=== PATIENT | female | born 1980 | race Caucasian/White ===

== ENCOUNTER 2017-10-27 16:19 | Emergency (ER) | payer OTHER ==
--- NOTE | 2017-10-27 17:25 | PDOC ---
Rapid Medical Evaluation Chief Complaint: Vaginal Bleeding Time Seen by Provider: 10/27/17 17:21 Medical Evaluation: Allergies Allergy/AdvReac Type Severity Reaction Status Date / Time No Known Allergies Allergy Verified 10/27/17 17:21 10/27/17 17:22 pt c/o: vag spotting increased since tuesday, went to [facility] and was told she was 5 weeks 2 days on u/s. Gave rhogam. ua -. Pt on brief exam: vss, no abd tenderness Pt ordered for : beta hcg, cbc, comp, preg u/s pt to proceed to the ED: Discharge Disposition - Diagnosis Vaginal bleeding during - Referrals - Patient Instructions - Post Discharge Activity
[2017-10-27 17:26] VITALS: BP 150/91; PULSE 82; TEMP 97.8; BMI 36.3
[2017-10-27 17:52] LABS: BASO % 0.7 % (0-2.0); EOS % 1.6 % (0-4.5); HEMATOCRIT 39.5 % (32.4-45.2); HEMOGLOBIN 13.2 GM/dL (10.7-15.3); LYMPH % 28.2 % (8-40); MCH 29.9 pg (25.7-33.7); MCHC 33.4 g/dl (32.0-36.0); MEAN CELL VOLUME 89.5 fl (80-96); MEAN PLT VOLUME 9.5 fl (7.5-11.1); NEUT % 62.5 % (42.8-82.8); PLATELET COUNT 228 K/MM3 (134-434); RBC 4.41 M/mm3 (3.60-5.2); RDW 12.5 % (11.6-15.6); WHITE BLOOD COUNT 7.9 K/mm3 (4.0-10.0)
[2017-10-27] MEDS ORDERED: ACETAMINOPHEN 325 MG TABLET (FP) PO ONE (17:53)
--- NOTE | 2017-10-27 17:53 | PDOC ---
History of Present Illness - General Chief Complaint: Vaginal Bleeding Stated Complaint: VAGINAL BLEEDING/6 WKS Time Seen by Provider: 10/27/17 17:21 History Source: Patient Exam Limitations: No Limitations - History of Present Illness Travel History: No Initial Comments: 10/27/17 17:58 36 yr female states 5 weeks with lower abd cramping low back pain and vaginal bleeding. Pt seen at [facility] ER 10/25/17 for same. Was given Rhogam shot and told to return in 2 days,. Pt has no medical history. Pain Radiation: reports: no radiation Past History - Past Medical History Allergies/Adverse Reactions: Allergies Allergy/AdvReac Type Severity Reaction Status Date / Time No Known Allergies Allergy Verified 10/27/17 17:21 Home Medications: Ambulatory Orders Ibuprofen 800 mg PO TID PRN #20 tablet 10/27/17 Oxycodone HCl/Acetaminophen [Percocet 5-325 mg Tablet] 1 tab PO Q4H PRN #12 tablet MDD 8 tabs 10/27/17 CVA: No COPD: No DVT: No - Immunization History Immunization Up to Date: Yes - Suicide/Smoking/Psychosocial Hx Smoking History: Never smoked Have you smoked in the past 12 months: No Information on smoking cessation initiated: No Hx Alcohol Use: No Drug/Substance Use Hx: No Substance Use Type: None *Physical Exam - Vital Signs Last Vital Signs Temp Pulse Resp BP Pulse Ox 97.8 F 82 16 150/91 100 10/27/17 17:21 10/27/17 17:21 18 17:21 10/27/17 17:21 10/27/17 17:21 - Physical Exam General Appearance: Yes: Nourished, Appropriately Dressed HEENT: positive: EOMI, SAWYER Neck: positive: Supple. negative: Tender Respiratory/Chest: positive: Lungs Clear, Normal Breath Sounds. negative: Chest Tender Cardiovascular: positive: Regular Rhythm, Regular Rate Female Pelvic Exam: positive: vaginal bleeding (bright red blood with clots.) Gastrointestinal/Abdominal: positive: Normal Bowel Sounds, Soft Musculoskeletal: positive: Normal Inspection Extremity: positive: Normal Capillary Refill, Normal Inspection, Normal Range of Motion Integumentary: positive: Normal Color, Dry, Warm Neurologic: positive: Fully Oriented, Alert, Normal Mood/Affect, Normal Response , Motor Strength 5/5 ED Treatment Course - LABORATORY CBC & Chemistry Diagram: 10/27/17 17:44 10/27/17 17:44 Medical Decision Making - Medical Decision Making 10/27/17 19:08 cc: vaginal bleeding with cramping 5 weeks had Rhogam shot at [facility] 2 days ago pt came to ER today for increased bleeding and pain 10/27/17 20:06 signed out to John Sapp NP pending the US results. *DC/Admit/Observation/Transfer Diagnosis at time of Disposition: Vaginal bleeding during - Discharge Dispostion Condition at time of disposition: Fair - Prescriptions Prescriptions: Ibuprofen 800 mg PO TID PRN #20 tablet PRN Reason: Pain Oxycodone HCl/Acetaminophen [Percocet 5-325 mg Tablet] 1 tab PO Q4H PRN #12 tablet MDD 8 tabs PRN Reason: Severe Pain - Referrals - Patient Instructions Additional Instructions: please follow up with the audio visual design engineer Dr. Davis call tomorrow to make appointment take motrin 800mg every 8hrs for pain apply a warm heating pad to the lower abdomen and back take percocet for severe pain return to ER for any pain you can not control at home or any other concerns please drink pleanty of water 2 liters daily and eat small well balanced meals every 2-3 hrs por favor, siga con el gineclogo Dr. Davis llame maana para hacer joy chandrika jeffery motrin 800 mg cada 8 horas para el dolor aplicar joy almohadilla trmica caliente en la parte inferior del abdomen y la espalda jeffery percocet para el dolor jo-ann regresar a la enedina de emergencias por cualquier dolor que no pueda controlar en el hogar o cualquier otra inquietud por favor leslie samanta agua 2 litros al da y coma comidas pequeas y deangelo balanceadas cada 2-3 horas - Post Discharge Activity
[2017-10-27] MEDS ORDERED: ACETAMINOPHEN 325 MG TABLET (FP) ONE (17:54)
[2017-10-27 18:39] LABS: ALBUMIN 4.1 g/dl (3.4-5.0); ANION GAP 7 (8-16); BLOOD UREA NITROGEN 12 mg/dL (7-18); CALCIUM 8.8 mg/dL (8.5-10.1); CHLORIDE 105 mmol/L (98-107); CO2 27 mmol/L (21-32); CREATININE 0.6 mg/dL (0.55-1.02); GLUCOSE,RANDOM 102 mg/dL (74-106); POTASSIUM 3.9 mmol/L (3.5-5.1); SGOT/AST 30 U/L (15-37); SODIUM 139 mmol/L (136-145); TOT PROT 7.7 g/dl (6.4-8.2)
[2017-10-27 18:54] LABS: ALK PHOS 83 U/L (45-117); BILIRUBIN,TOTAL 0.3 mg/dL (0.2-1.0); SGPT/ALT 52 U/L (12-78)
--- NOTE | 2017-10-27 20:21 | PDOC ---
*Physical Exam - Vital Signs Last Vital Signs Temp Pulse Resp BP Pulse Ox 97.8 F 82 16 150/91 100 10/27/17 17:21 10/27/17 17:21 10/27/17 17:21 10/27/17 17:21 10/27/17 17:21 ED Treatment Course - LABORATORY CBC & Chemistry Diagram: 10/27/17 17:44 10/27/17 17:44 - ADDITIONAL ORDERS Additional order review: Laboratory Results 10/27/17 10/27/17 17:44 17:44 Sodium 139 Potassium 3.9 Chloride 105 Carbon Dioxide 27 Anion Gap 7 L BUN 12 Creatinine 0.6 Creat Clearance w eGFR > 60 Random Glucose 102 Calcium 8.8 Total Bilirubin 0.3 AST 30 ALT 52 Alkaline Phosphatase 83 Total Protein 7.7 Albumin 4.1 Beta HCG, Quant 7815.5 Blood Type O NEGATIVE Antibody Screen Positive H 10/27/17 17:44 RBC 4.41 MCV 89.5 MCHC 33.4 RDW 12.5 MPV 9.5 Neutrophils % 62.5 Lymphocytes % 28.2 Monocytes % 7.0 Eosinophils % 1.6 Basophils % 0.7 - Medications Given in the ED: ED Medications Discontinued Medications Generic Name Dose Route Start Last Admin Trade Name Freq PRN Reason Stop Dose Admin Acetaminophen 650 mg 10/27/17 17:53 10/27/17 17:55 Tylenol - PO 10/27/17 17:54 650 mg ONCE ONE Administration Progress Note - Progress Note Progress Note: Obstetrical ultrasound read by Dr. Mancini: Intrauterine gestational sac is noted with a 1.8 cm diameter. No associated embryonic pole or yolk sac is seen and therefore the study suggestive doesn't an embryonic gestation. Correlation with beta hCG levels. Pulse follow-up sonography may be performed. *DC/Admit/Observation/Transfer Diagnosis at time of Disposition: Vaginal bleeding during - Discharge Dispostion Disposition: HOME Condition at time of disposition: Fair - Prescriptions Prescriptions: Ibuprofen 800 mg PO TID PRN #20 tablet PRN Reason: Pain Oxycodone HCl/Acetaminophen [Percocet 5-325 mg Tablet] 1 tab PO Q4H PRN #12 tablet MDD 8 tabs PRN Reason: Severe Pain - Referrals - Patient Instructions Additional Instructions: please follow up with the depilatory painter Dr. Davis call tomorrow to make appointment take motrin 800mg every 8hrs for pain apply a warm heating pad to the lower abdomen and back take percocet for severe pain return to ER for any pain you can not control at home or any other concerns please drink pleanty of water 2 liters daily and eat small well balanced meals every 2-3 hrs por favor, siga con el gineclogo Dr. Davis llame maana para hacer joy chandrika jeffery motrin 800 mg cada 8 horas para el dolor aplicar joy almohadilla trmica caliente en la parte inferior del abdomen y la espalda jeffery percocet para el dolor jo-ann regresar a la enedina de emergencias por cualquier dolor que no pueda controlar en el hogar o cualquier otra inquietud por favor leslie samanta agua 2 litros al da y coma comidas pequeas y deangelo balanceadas cada 2-3 horas - Post Discharge Activity
== END 2017-10-27 20:23 | disposition home or self-care (01) ==
LOC: JERFT 16:19
DX: O26.891 Other specified pregnancy related conditions, first trimester (principal); O20.8 Other hemorrhage in early pregnancy; Z3A.01 Less than 8 weeks gestation of pregnancy
CPT/HCPCS: 36415; 76801-TC; 80053; 84702; 85025; 86850; 86870; 86900; 86901; 86902; 99281-25

== ENCOUNTER 2021-01-06 16:30 | Inpatient (IN) | payer OTHER ==
[2021-01-06 18:10] VITALS: BMI 33.6
[2021-01-06] MEDS: DEXTROSE 5%-LACTATED RINGERS 1,000 ML IV SCH (18:20)
[2021-01-06] MEDS ORDERED: BUTORPHANOL TARTRATE 1 MG/ML VIAL IVPB ONE (18:25)
[2021-01-06] MEDS ORDERED: PROMETHAZINE HCL 25 MG/1 ML VIAL IVPUSH ONE (18:25)
[2021-01-06 18:57] LABS: BASO % 0.3 % (0-2.0); EOS % 0.2 % (0-4.5); HEMATOCRIT 31.4 % (32.4-45.2); HEMOGLOBIN 10.3 GM/dL (10.7-15.3); LYMPH % 16.6 % (8-40); MCH 28.4 pg (25.7-33.7); MCHC 32.9 g/dl (32.0-36.0); MEAN CELL VOLUME 86.2 fl (80-96); MEAN PLT VOLUME 9.8 fl (7.5-11.1); MONO % 5.7 % (3.8-10.2); NEUT % 77.2 % (42.8-82.8); PLATELET COUNT 260 K/MM3 (134-434); RBC 3.64 M/mm3 (3.60-5.2); RDW 13.4 % (11.6-15.6); WHITE BLOOD COUNT 9.4 K/mm3 (4.0-10.0)
[2021-01-06 19:06] LABS: INR 0.93 (0.83-1.09); PROTHROMBIN TIME (PATIENT) 11.3 SEC (9.7-13.0)
[2021-01-06 19:09] LABS: ACTIVATED PTT 24.7 SECONDS (25.2-36.5)
[2021-01-06 19:24] LABS: CALCIUM 8.9 mg/dL (8.5-10.1)
[2021-01-06 19:25] LABS: BLOOD UREA NITROGEN 9.2 mg/dL (7-18)
[2021-01-06 19:27] LABS: CREATININE 0.5 mg/dL (0.55-1.3); URIC ACID 3.5 mg/dL (2.6-7.2)
[2021-01-06 19:29] LABS: BILIRUBIN,TOTAL 0.6 mg/dL (0.2-1)
[2021-01-06] MEDS ORDERED: OXYTOCIN 30 UNITS in 0.9% NS 30 UNIT/500 ML INFUS.BAG IVPB ONE (20:27)
[2021-01-06] MEDS ORDERED: OXYTOCIN 30 UNITS in 0.9% NS 30 UNIT/500 ML INFUS.BAG IVPB SCH (20:30)
[2021-01-07] MEDS ORDERED: PROMETHAZINE HCL 25 MG/1 ML VIAL ONE (00:01)
[2021-01-07] MEDS ORDERED: BUTORPHANOL TARTRATE 2 MG/ML VIAL ONE (00:01)
[2021-01-07] MEDS: DEXTROSE 5%-LACTATED RINGERS 1,000 ML IV SCH (00:38)
[2021-01-07 01:41] LABS: EPI CELLS >36 /uL (0-25.1); HYALINE CASTS 7 /uL (0-3.1); URINE APPEARANCE CLOUDY; URINE BACTERIA 238 /uL (0-1359); URINE BILIRUBIN NEGATIVE (NEGATIVE); URINE COLOR YELLOW; URINE GLUCOSE (UA) NEGATIVE (NEGATIVE); URINE KETONE 1+ (NEGATIVE); URINE LEUK ESTERASE TRACE (NEGATIVE); URINE NITRITE NEGATIVE (NEGATIVE); URINE PROTEIN 1+ (NEGATIVE); URINE RBC 159 /uL (0-23.9); URINE WBC 25 /uL (0-25.8)
[2021-01-07] MEDS ORDERED: FENTANYL/BUPIVACAINE/NS/PF - PCEA - 50 ML DISP.SYRIN EP ONE (02:00)
[2021-01-07] MEDS ORDERED: NALOXONE HCL 0.4 MG/ML VIAL IVPUSH PRN (02:01)
[2021-01-07] MEDS ORDERED: PCA PUMP NR ONE (02:01)
[2021-01-07] MEDS ORDERED: BUPIVACAINE HCL/PF 0.25% (2.5MG/ML) 10 ML VIAL ONE (02:05)
[2021-01-07] MEDS: FENTANYL/BUPIVACAINE/NS/PF - PCEA - 50 ML DISP.SYRIN EP SCH (02:30)
[2021-01-07] MEDS ORDERED: OXYTOCIN 20 UNITS in 0.9% NS 20 UNIT/1,000 ML INFUS.BAG IV ONE (04:03)
[2021-01-07] MEDS ORDERED: LIDOCAINE HCL 1% PRESERVATIVE FREE - 30ML VIAL ONE (04:04)
[2021-01-07] MEDS ORDERED: WITCH HAZEL 50% (TUCKS) 40 PAD/JAR PAD TP PRN (06:04)
[2021-01-07] MEDS ORDERED: BENZOCAINE 28 GM HEMORRHOIDAL OINTMENT TP PRN (06:04)
[2021-01-07] MEDS ORDERED: oxyCODONE HCL 5 MG TABLET PO PRN (06:04)
[2021-01-07] MEDS ORDERED: BISACODYL 10 MG SUPP.RECT RC PRN (06:04)
[2021-01-07] MEDS ORDERED: BENZOCAINE 20% 57 GM BOTTLE TP PRN (06:04)
[2021-01-07] MEDS ORDERED: METHYLERGONOVINE MALEATE 0.2 MG/1 ML AMP IM PRN (06:04)
[2021-01-07] MEDS ORDERED: LABETALOL HCL 200 MG TABLET (FP) PO ONE (06:08)
[2021-01-07] MEDS ORDERED: OXYTOCIN 20 UNITS in 0.9% NS 20 UNIT/1,000 ML INFUS.BAG IV SCH (06:15)
[2021-01-07 06:16] LABS: CORD BASE EXCESS -3.5 mmol/L (0-2); CORD HCO3 26.2 mmHg (20-29); CORD PCO2 65.4 mmHg (30-78); CORD pH 7.22 (7.14-7.44)
[2021-01-07 06:17] LABS: CORD BASE EXCESS -5.4 mmol/L (0-2); CORD HCO3 19.6 mmHg (20-29); CORD PCO2 37.2 mmHg (30-78); CORD pH 7.34 (7.14-7.44)
[2021-01-07] MEDS ORDERED: ACETAMINOPHEN 325 MG TABLET (FP) ONE (08:02)
[2021-01-07] MEDS ORDERED: IBUPROFEN 600 MG TABLET (FP) PO ONE (08:02)
[2021-01-07] MEDS: IBUPROFEN 600 MG TABLET (FP) PO PRN (08:05)
[2021-01-07] MEDS: ACETAMINOPHEN 325 MG TABLET (FP) PO PRN (08:05)
[2021-01-07] MEDS ORDERED: FERROUS SO4 325 MG TABLET (FP) ONE (08:12)
[2021-01-07] MEDS: FERROUS SO4 325 MG TABLET (FP) PO SCH ×2 (08:15→17:43)
[2021-01-07] MEDS: PRENATAL VITAMINS W/ FOLIC ACID TABLET (FP) PO SCH (09:10)
[2021-01-07] MEDS: LABETALOL HCL 200 MG TABLET (FP) PO PRN ×2 (17:43→23:22)
[2021-01-08] MEDS: LABETALOL HCL 200 MG TABLET (FP) PO PRN ×2 (05:47→18:18)
[2021-01-08 07:59] LABS: BASO % 0.2 % (0-2.0); HEMATOCRIT 26.3 % (32.4-45.2); HEMOGLOBIN 8.5 GM/dL (10.7-15.3); LYMPH % 16.1 % (8-40); MCH 28.2 pg (25.7-33.7); MCHC 32.3 g/dl (32.0-36.0); MEAN CELL VOLUME 87.3 fl (80-96); MEAN PLT VOLUME 9.5 fl (7.5-11.1); MONO % 5.1 % (3.8-10.2); NEUT % 77.6 % (42.8-82.8); PLATELET COUNT 205 K/MM3 (134-434); RBC 3.02 M/mm3 (3.60-5.2); RDW 14.1 % (11.6-15.6); WHITE BLOOD COUNT 11.5 K/mm3 (4.0-10.0)
[2021-01-08] MEDS: FERROUS SO4 325 MG TABLET (FP) PO SCH ×2 (09:00→17:29)
[2021-01-08] MEDS: PRENATAL VITAMINS W/ FOLIC ACID TABLET (FP) PO SCH (09:26)
[2021-01-08] MEDS: IBUPROFEN 600 MG TABLET (FP) PO PRN (09:27)
[2021-01-08] MEDS: ACETAMINOPHEN 325 MG TABLET (FP) PO PRN (09:27)
[2021-01-08] MEDS: DEXTROSE 5%-LACTATED RINGERS 1,000 ML IV SCH (13:04)
[2021-01-08] MEDS: FENTANYL/BUPIVACAINE/NS/PF - PCEA - 50 ML DISP.SYRIN EP SCH (13:08)
[2021-01-08] MEDS ORDERED: SENNOSIDES/DOCUSATE COMBO (SENNA PLUS) TABLET (UD) PO PRN (22:00)
[2021-01-09 09:00] VITALS: BP 136/77; PULSE 84; TEMP 98.4
[2021-01-09] MEDS: PRENATAL VITAMINS W/ FOLIC ACID TABLET (FP) PO SCH (09:20)
[2021-01-09] MEDS: FERROUS SO4 325 MG TABLET (FP) PO SCH (09:21)
== END 2021-01-09 12:50 | disposition home or self-care (01) | DRG 560 ==
LOC: JDEL 16:30 → JLDR 17:35 → J3W 01-07 08:25
PROVIDERS: ADMIT Obstetrics & Gynecology; ATTEND Obstetrics & Gynecology
PROC: 0U7C7ZZ Dilation of Cervix, Via Natural or Artificial Opening (ICD-10-PCS; 2021-01-06)
PROC: 0W8NXZZ Division of Female Perineum, External Approach (ICD-10-PCS; principal; 2021-01-07)
PROC: 0KQM0ZZ Repair Perineum Muscle, Open Approach (ICD-10-PCS; 2021-01-07)
DX: O42.02 Full-term premature rupture of membranes, onset of labor within 24 hours of rupture (principal); O70.1 Second degree perineal laceration during delivery; Z37.0 Single live birth; Z3A.38 38 weeks gestation of pregnancy
CPT/HCPCS: 36415; 36600; 59409; 80053; 81003; 82570; 82803; 82977; 83010; 84156; 84550; 85025; 85045; 85461; 85610; 85730; 86780; 86850; 86900; 86901; 86999; C9803; U0003; U0005

== ENCOUNTER 2021-08-03 19:10 | Emergency (ER) | payer OTHER ==
[2021-08-03 19:21] VITALS: BP 143/93; PULSE 80; TEMP 98.4; BMI 34.9
[2021-08-03] MEDS ORDERED: SODIUM CHLORIDE 0.9% 500 ML INFUS.BAG IV ONE (22:08)
[2021-08-03 22:20] LABS: BASO % 0.3 % (0-2.0); EOS % 1.7 % (0-4.5); HEMATOCRIT 40.6 % (32.4-45.2); HEMOGLOBIN 13.8 GM/dL (10.7-15.3); LYMPH % 36.8 % (8-40); MCH 30.3 pg (25.7-33.7); MCHC 34.1 g/dl (32.0-36.0); MEAN CELL VOLUME 88.8 fl (80-96); MEAN PLT VOLUME 9.8 fl (7.5-11.1); MONO % 7.4 % (3.8-10.2); NEUT % 53.8 % (42.8-82.8); PLATELET COUNT 229 10^3/uL (134-434); RBC 4.57 M/mm3 (3.60-5.2); WHITE BLOOD COUNT 6.9 K/mm3 (4.0-10.0)
[2021-08-03 22:33] LABS: URINE APPEARANCE TURBID; URINE BILIRUBIN NEGATIVE (NEGATIVE); URINE COLOR YELLOW; URINE GLUCOSE (UA) NEGATIVE (NEGATIVE); URINE KETONE NEGATIVE (NEGATIVE); URINE LEUK ESTERASE NEGATIVE (NEGATIVE); URINE NITRITE NEGATIVE (NEGATIVE); URINE PROTEIN NEGATIVE (NEGATIVE)
[2021-08-03 22:47] LABS: ALBUMIN 4.1 g/dl (3.4-5.0); BLOOD UREA NITROGEN 12.9 mg/dL (7-18); CALCIUM 9.2 mg/dL (8.5-10.1)
[2021-08-03 22:49] LABS: CREATININE 0.8 mg/dL (0.55-1.3)
[2021-08-03 22:52] LABS: BILIRUBIN,TOTAL 0.3 mg/dL (0.2-1); TOT PROT 7.9 g/dl (6.4-8.2)
== END 2021-08-04 00:49 | disposition home or self-care (01) ==
LOC: JER 19:10
DX: K46.9 Unspecified abdominal hernia without obstruction or gangrene (principal); N83.201 Unspecified ovarian cyst, right side; R10.31 Right lower quadrant pain
CPT/HCPCS: 36415; 74177-TC; 76830-TC; 80053; 81003; 83690; 84703; 85025; 87086; 99285-25; Q9967

== ENCOUNTER 2024-06-10 20:45 | Inpatient (IN) | payer OTHER ==
[2024-06-10] MEDS: ELECTROLYTE-148 SOLN 1,000 ML IV SCH (21:30)
[2024-06-10] MEDS ORDERED: NIFEdipine 10 MG CAPSULE (FP) ONE (21:32)
[2024-06-10] MEDS: NIFEdipine 10 MG CAPSULE (FP) PO STA (21:33)
[2024-06-10] MEDS: MAGNESIUM 4GM/H20 - 4 GM/100 ML IVPB IVPB SCH (21:50)
[2024-06-10] MEDS ORDERED: MAGNESIUM 4GM/H20 - 4 GM/100 ML IVPB IVPB ONE (21:51)
[2024-06-10 22:01] VITALS: BMI 29.2
[2024-06-10] MEDS ORDERED: hydrALAZINE HCL 20 MG/ML VIAL ONE (22:04)
[2024-06-10] MEDS: hydrALAZINE HCL 20 MG/ML VIAL IVPUSH STA (22:10)
[2024-06-10 22:12] LABS: BASO % 0.4 % (0-2.0); EOS % 0.9 % (0-4.5); HEMATOCRIT 36.5 % (32.4-45.2); HEMOGLOBIN 12.2 GM/dL (10.7-15.3); LYMPH % 21.8 % (8-40); MCH 30.1 pg (25.7-33.7); MCHC 33.3 g/dl (32.0-36.0); MEAN CELL VOLUME 90.4 fl (80-96); MEAN PLT VOLUME 9.6 fl (7.5-11.1); MONO % 7.3 % (3.8-10.2); NEUT % 69.6 % (42.8-82.8); PLATELET COUNT 233 10^3/uL (134-434); RBC 4.04 M/mm3 (3.60-5.2); RDW 15.4 % (11.6-15.6); RETICULOCYTES 2.14 % (0.5-1.5); WHITE BLOOD COUNT 9.1 K/mm3 (4.0-10.0)
[2024-06-10 22:18] LABS: INR 0.9 (0.83-1.09); PROTHROMBIN TIME (PATIENT) 10.2 SEC (9.7-13.0)
[2024-06-10 22:20] LABS: ACTIVATED PTT 28.3 SECONDS (25.2-36.5)
[2024-06-10] MEDS ORDERED: MAGNESIUM SULFATE 20GM/500ML - 20 GM/500 ML INFUS.BAG ONE (22:29)
[2024-06-10 22:30] LABS: POTASSIUM 4.2 mmol/L (3.5-5.1)
[2024-06-10] MEDS: MAGNESIUM SULFATE 20GM/500ML - 20 GM/500 ML INFUS.BAG IVPB SCH (22:30)
[2024-06-10 22:32] LABS: CALCIUM 9.1 mg/dL (8.5-10.1)
[2024-06-10 22:35] LABS: CREATININE 0.6 mg/dL (0.55-1.3); URIC ACID 4.6 mg/dL (2.6-7.2)
[2024-06-10] MEDS ORDERED: LIGASURE IMPACT TP ONE (22:35)
[2024-06-10] MEDS: CITRIC ACID/SODIUM CITRATE 30 ML UNIT-DOSE CUP PO ONE (22:35)
[2024-06-10] MEDS ORDERED: FENTANYL CITRATE/PF 50 MCG/ML VIAL ONE (23:17)
[2024-06-10] MEDS ORDERED: morphine SULFATE/PF 1 MG/2 ML (2cc Syringe - QUVA) ONE (23:17)
[2024-06-10] MEDS ORDERED: ONDANSETRON 4 MG/2 ML VIAL ONE (23:22)
[2024-06-10 23:23] LABS: URINE APPEARANCE CLEAR; URINE BILIRUBIN NEGATIVE (NEGATIVE); URINE COLOR YELLOW; URINE GLUCOSE (UA) NEGATIVE (NEGATIVE); URINE KETONE TRACE (NEGATIVE); URINE LEUK ESTERASE NEGATIVE (NEGATIVE); URINE NITRITE NEGATIVE (NEGATIVE); URINE PROTEIN NEGATIVE (NEGATIVE); URINE UROBILINOGEN 0.2 mg/dL (0.2-1.0)
[2024-06-11] MEDS ORDERED: LABETALOL HCL 100 MG TABLET (FP) PO SCH (00:30)
[2024-06-11] MEDS: OXYTOCIN 20 UNITS in 0.9% NS 20 UNIT/1,000 ML INFUS.BAG IV SCH (00:30)
[2024-06-11] MEDS ORDERED: OXYTOCIN 20 UNITS in 0.9% NS 20 UNIT/1,000 ML INFUS.BAG IV ONE ×2 (00:30→13:52)
[2024-06-11] MEDS ORDERED: LABETALOL HCL 200 MG TABLET (FP) ONE (01:12)
[2024-06-11] MEDS ORDERED: LABETALOL HCL 100 MG TABLET (FP) ONE (01:12)
[2024-06-11] MEDS: LABETALOL HCL 200 MG, LABETALOL HCL 100 MG PO SCH (01:15)
[2024-06-11] MEDS: IBUPROFEN 800 MG/8 ML IJ IVPB PRN (07:05)
[2024-06-11] MEDS ORDERED: IBUPROFEN 800 MG/8 ML IJ IVPB ONE ×2 (07:06→14:57)
[2024-06-11 07:39] LABS: BASO % 0.2 % (0-2.0); EOS % 0.1 % (0-4.5); HEMATOCRIT 29.5 % (32.4-45.2); HEMOGLOBIN 9.8 GM/dL (10.7-15.3); LYMPH % 7.3 % (8-40); MCHC 33.1 g/dl (32.0-36.0); MEAN CELL VOLUME 90.8 fl (80-96); MEAN PLT VOLUME 9.6 fl (7.5-11.1); MONO % 5.8 % (3.8-10.2); NEUT % 86.6 % (42.8-82.8); PLATELET COUNT 193 10^3/uL (134-434); RBC 3.25 M/mm3 (3.60-5.2); RDW 15.6 % (11.6-15.6); WHITE BLOOD COUNT 12.5 K/mm3 (4.0-10.0)
[2024-06-11 08:06] LABS: MAGNESIUM 5.2 mg/dL (1.8-2.4)
[2024-06-11] MEDS ORDERED: MAGNESIUM SULFATE 20GM/500ML - 20 GM/500 ML INFUS.BAG ONE ×2 (08:58→21:59)
[2024-06-11] MEDS: LABETALOL HCL 200 MG TABLET (FP) PO SCH (12:03)
[2024-06-11 12:17] LABS: MAGNESIUM 6.3 mg/dL (1.8-2.4)
[2024-06-11] MEDS: SIMETHICONE 80 MG TAB.CHEW (FP) PO PRN (13:00)
[2024-06-11 19:31] LABS: BASO % 0.1 % (0-2.0); HEMATOCRIT 23.1 % (32.4-45.2); HEMOGLOBIN 7.5 GM/dL (10.7-15.3); LYMPH % 11.6 % (8-40); MCHC 32.7 g/dl (32.0-36.0); MEAN CELL VOLUME 91.7 fl (80-96); MEAN PLT VOLUME 9.4 fl (7.5-11.1); MONO % 5.3 % (3.8-10.2); PLATELET COUNT 173 10^3/uL (134-434); RBC 2.52 M/mm3 (3.60-5.2); RDW 15.3 % (11.6-15.6); WHITE BLOOD COUNT 8.8 K/mm3 (4.0-10.0)
[2024-06-11 20:10] LABS: CHLORIDE 105 mmol/L (98-107); POTASSIUM 3.9 mmol/L (3.5-5.1); SODIUM 133 mmol/L (136-145)
[2024-06-11] MEDS ORDERED: ACETAMINOPHEN 325 MG TABLET (FP) ONE (20:10)
[2024-06-11 20:12] LABS: ANION GAP 8 mmol/L (4-13); CO2 20 mmol/L (21-32); GLUCOSE,RANDOM 153 mg/dL (74-106)
[2024-06-11 20:13] LABS: BLOOD UREA NITROGEN 9.9 mg/dL (7-18); CALCIUM 6.3 mg/dL (8.5-10.1)
[2024-06-11 20:15] LABS: CREATININE 0.5 mg/dL (0.55-1.3); MAGNESIUM 5.8 mg/dL (1.8-2.4); SGOT/AST 28 U/L (15-37); SGPT/ALT 20 U/L (13-61)
[2024-06-11 20:17] LABS: BILIRUBIN,TOTAL 0.2 mg/dL (0.2-1); TOT PROT 4.8 g/dl (6.4-8.2)
[2024-06-11 20:18] LABS: ALK PHOS 146 U/L (45-117)
[2024-06-11] MEDS: ACETAMINOPHEN 325 MG TABLET (FP) PO PRN (20:30)
[2024-06-11] MEDS ORDERED: ACETAMINOPHEN/CAFFEINE/BUTALBITAL 1 TAB ONE (20:38)
[2024-06-11] MEDS: ACETAMINOPHEN/CAFFEINE/BUTALBITAL 1 TAB PO PRN (20:45)
[2024-06-11] MEDS: CALCIUM GLUC IN NACL, ISO-OSM 1 GM/50 ML BAG IVPB ONE (22:26)
[2024-06-12 00:45] LABS: BASO % 0.1 % (0-2.0); EOS % 0.2 % (0-4.5); HEMATOCRIT 22.9 % (32.4-45.2); HEMOGLOBIN 7.7 GM/dL (10.7-15.3); LYMPH % 12.2 % (8-40); MCH 30.4 pg (25.7-33.7); MCHC 33.8 g/dl (32.0-36.0); MEAN CELL VOLUME 89.9 fl (80-96); MEAN PLT VOLUME 9.2 fl (7.5-11.1); MONO % 5.6 % (3.8-10.2); NEUT % 81.9 % (42.8-82.8); PLATELET COUNT 180 10^3/uL (134-434); RBC 2.55 M/mm3 (3.60-5.2); RDW 15.7 % (11.6-15.6); WHITE BLOOD COUNT 8.3 K/mm3 (4.0-10.0)
[2024-06-12 00:54] LABS: CHLORIDE 105 mmol/L (98-107); POTASSIUM 3.8 mmol/L (3.5-5.1); SODIUM 132 mmol/L (136-145)
[2024-06-12 00:58] LABS: ALBUMIN 2.1 g/dl (3.4-5.0); ANION GAP 5 mmol/L (4-13); CO2 21 mmol/L (21-32); GLUCOSE,RANDOM 119 mg/dL (74-106)
[2024-06-12 01:01] LABS: CREATININE 0.4 mg/dL (0.55-1.3); SGOT/AST 29 U/L (15-37); SGPT/ALT 21 U/L (13-61)
[2024-06-12 01:02] LABS: BILIRUBIN,TOTAL 0.4 mg/dL (0.2-1)
[2024-06-12 01:04] LABS: ALK PHOS 148 U/L (45-117)
[2024-06-12 01:05] LABS: CALCIUM 6.6 mg/dL (8.5-10.1)
[2024-06-12 11:18] LABS: BASO % 0.1 % (0-2.0); EOS % 0.1 % (0-4.5); HEMATOCRIT 23.6 % (32.4-45.2); HEMOGLOBIN 7.9 GM/dL (10.7-15.3); LYMPH % 13.6 % (8-40); MCH 30.3 pg (25.7-33.7); MCHC 33.4 g/dl (32.0-36.0); MEAN CELL VOLUME 90.5 fl (80-96); MEAN PLT VOLUME 9.3 fl (7.5-11.1); MONO % 5.9 % (3.8-10.2); NEUT % 80.3 % (42.8-82.8); PLATELET COUNT 198 10^3/uL (134-434); RBC 2.61 M/mm3 (3.60-5.2); RDW 15.8 % (11.6-15.6); WHITE BLOOD COUNT 9.2 K/mm3 (4.0-10.0)
[2024-06-12 11:35] LABS: POTASSIUM 4.4 mmol/L (3.5-5.1)
[2024-06-12 11:38] LABS: CALCIUM 7.2 mg/dL (8.5-10.1)
[2024-06-12 11:39] LABS: ALBUMIN 2.3 g/dl (3.4-5.0); BLOOD UREA NITROGEN 8.5 mg/dL (7-18)
[2024-06-12 11:42] LABS: CREATININE 0.5 mg/dL (0.55-1.3)
[2024-06-12 11:43] LABS: BILIRUBIN,TOTAL 0.3 mg/dL (0.2-1); TOT PROT 5.6 g/dl (6.4-8.2)
[2024-06-12] MEDS: IBUPROFEN 600 MG TABLET (FP) PO PRN (17:17)
[2024-06-12] MEDS: oxyCODONE HCL 5 MG TABLET PO PRN (20:02)
[2024-06-12] MEDS: BISACODYL 10 MG SUPP.RECT RC PRN (20:04)
[2024-06-13 06:03] VITALS: TEMP 98.3
[2024-06-13 07:48] LABS: BASO % 0.3 % (0-2.0); EOS % 0.8 % (0-4.5); HEMATOCRIT 23.3 % (32.4-45.2); HEMOGLOBIN 7.7 GM/dL (10.7-15.3); LYMPH % 17.7 % (8-40); MCH 30.4 pg (25.7-33.7); MCHC 33.1 g/dl (32.0-36.0); MEAN CELL VOLUME 91.7 fl (80-96); MEAN PLT VOLUME 9.3 fl (7.5-11.1); MONO % 5.5 % (3.8-10.2); NEUT % 75.7 % (42.8-82.8); PLATELET COUNT 212 10^3/uL (134-434); RBC 2.54 M/mm3 (3.60-5.2); WHITE BLOOD COUNT 8.1 K/mm3 (4.0-10.0)
[2024-06-13 10:13] VITALS: BP 142/87; PULSE 97; RESP 23
== END 2024-06-13 14:20 | disposition home or self-care (01) | DRG 540 ==
LOC: JDEL 20:45 → JLDR 21:20 → J3W 06-12 03:31
PROVIDERS: ADMIT Student in an Organized Health Care Education/Training Program; ATTEND Student in an Organized Health Care Education/Training Program
PROC: 10D00Z1 Extraction of Products of Conception, Low, Open Approach (ICD-10-PCS; principal; 2024-06-11)
DX: O14.14 Severe pre-eclampsia complicating childbirth (principal); O99.02 Anemia complicating childbirth; D62 Acute posthemorrhagic anemia; Z3A.39 39 weeks gestation of pregnancy; Z37.0 Single live birth
CPT/HCPCS: 36415; 80048; 80053; 81003; 82570; 82977; 83010; 83735; 84156; 84450; 84460; 84550; 85025; 85045; 85461; 85610; 85730; 86780; 86803; 86850; 86900; 86901; 87340; 88302-TC; 88307-TC; 94010; 96372; J2790

== ENCOUNTER 2024-06-21 11:05 | Emergency (ER) | payer OTHER ==
[2024-06-21 11:14] VITALS: BP 152/87; PULSE 88; RESP 18; TEMP 98.1; BMI 28.3
== END 2024-06-21 12:16 | disposition home or self-care (01) ==
LOC: JERFT 11:05
DX: O90.2 Hematoma of obstetric wound (principal); Z3A.00 Weeks of gestation of pregnancy not specified
CPT/HCPCS: 99283-25